=== PATIENT | male | born 1955 | race Caucasian/White ===

== ENCOUNTER 2020-02-23 17:44 | Inpatient (IN) | payer OTHER ==
[~2020-02-23] VITALS: Ht 170.2 cm; Wt 51.0 kg
[2020-02-23 17:47] VITALS: BP 120/70
[2020-02-23 18:26] LABS: INR 2.6; PROTIME 26.3 Seconds (9.3-11.4)
[2020-02-23] MEDS ORDERED: LANOXIN 0.25M0.25 M1 PO (18:40)
[2020-02-23] MEDS ORDERED: ASA81BEC PO (18:40)
[2020-02-23] MEDS ORDERED: LIPITOR 20 MG T20 M1 PO (18:40)
[2020-02-23] MEDS ORDERED: JANTOVEN3 MG PO (18:41)
[2020-02-23] MEDS ORDERED: FUROSEMIDE 40 M40 MG PO (18:41)
[2020-02-23] MEDS ORDERED: LOPRESSOR50 MG PO (18:41)
[2020-02-23] MEDS ORDERED: LISINOPRIL2.5 MG PO (18:41)
[2020-02-23] MEDS ORDERED: SEROQUEL 25 MG25 MG PO (18:41)
[2020-02-23 20:04] VITALS: BP 121/65
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
[2020-02-24 07:06] LABS: ABSOLUTE NEUTROPHILS 5.6 thou/uL (1.4-8.2); BASOPHILS 1.2 % (0.0-2.0); EOSINOPHILS 3.8 % (0.0-3.0); HEMATOCRIT 36.5 % (42.0-52.0); LYMPHOCYTES 14.2 % (24.0-44.0); MCH 30.9 pg (26.0-34.0); MCHC 32.8 g/dL (28.0-37.0); PLATELET COUNT 270 thou/uL (150-400); POLYS 72.8 % (36.0-66.0); RBC 3.89 mil/uL (4.50-6.00); RDW 15.7 % (10.5-14.5); WBC 7.7 thou/uL (4.0-11.0)
[2020-02-24 07:10] LABS: INR 1.7; PROTIME 17.9 Seconds (9.3-11.4)
[2020-02-24 07:11] LABS: CALCIUM 9.1 mg/dL (8.5-10.1); CREATININE 1.8 mg/dL (0.7-1.3); POTASSIUM 5.2 mmol/L (3.5-5.1)
--- NOTE | 2020-02-24 07:17 | NUR ---
I was making morning rounds. I stopped to talk to another patient. I said "Good morning" to the patient. Solomon hit his call medina and in an angry tone stated "no, it's not!" I prononced his name as Mumtaz. He again in an angry tone stated "My name is Solomon can't you read!" I responded by saying "First off, I was talking to this gentleman, I am sorry I pronounced you name wrong and secondly, you do not need to yell at me.
--- NOTE | 2020-02-24 08:15 | EKG ---
[facility] [place] [address] ELECTROCARDIOGRAM REPORT Name: CHRISTINA GRIFFIN Room #: [facility] ADM IN M.R.#: [id number] Admission: 02/23/20 Attend Phys: Milad Lai DO Discharge: Date of : 53 Report #: [id number] THIS REPORT FOR: cc: CECILIA - No family physician/PCP FAM - No family physician/PCP Eliezer Lazar MD [facility] ~ THIS REPORT FOR: //name// [facility] ED Test Date: 2020-02-23 Test Time: 18:12:34 Pat Name: CHRISTINA GRIFFIN [facility] Gender: M Manager Respiratory: DONNA : 1955 Requested By: Shelby King Order Number: [id number] MD: Eliezer Lazar Measurements Intervals [place] Rate: 66 P: MD: QRS: 87 QRSD: 95 T: 91 QT: 431 QTc: 452 Interpretive Statements Atrial flutter with predominant 4:1 AV block Probable left ventricular hypertrophy Poor R wave progression Nonspecific ST and T wave abnormality No previous ECG available for comparison Electronically Signed On 02-24-2020 7:44:53 CDT by Eliezer Lazar [email or web address] <ELECTRONICALLY SIGNED> By: Eliezer Lazar MD, [facility] 02/24/20 0744 11 11 Eliezer Lazar MD, [facility] /EPI
[2020-02-24 09:01] VITALS: BP 100/64
--- NOTE | 2020-02-24 13:47 | NUR ---
SW met with pt and misunderstood the nurses note that his name was pronounced yesenia and not leeanne, so he was hostile at first. SW completed the intake assesment and TP. Pt was defensive abd sarcastic during the interview.
--- NOTE | 2020-02-24 16:55 | NUR ---
JANNETTE called pt's [facility] [phone] and set up family meeting for 02/27 11:30 am.
[2020-02-24 20:35] VITALS: BP 114/53
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
--- NOTE | 2020-02-25 04:56 | NUR ---
Assumed care of pt @ 1900. Pt calm et cooperative most of shift. Pt perseverating on discharging today et states that he "can't stand this fucking place". Pt states that he will leave without the physician permission if he is not discharged today. Informed pt that physician has the option to place pt on hold if he feels that pt is a danger to himself or others. Pt verbalized understanding. Took medications whole without difficulty. Pt mildly obsessed with the temperature in his room this shift et states that he is on Coumadin et therefore is always cold. Ambulates the halls ad martin with steady gait. VSWNL. Health assessment with no abnormalities noted @ present time. Denies SI/HI @ presen time. Currently resting in bed with eyes closed. Will continue to monitor per protocol.
[2020-02-25 08:00] VITALS: BP 105/57
[2020-02-25 08:18] LABS: INR 1.5; PROTIME 15.2 Seconds (9.3-11.4)
[2020-02-25 08:19] LABS: CREATININE 1.8 mg/dL (0.7-1.3); POTASSIUM 5.2 mmol/L (3.5-5.1)
[2020-02-25 13:00] VITALS: BP 105/57
--- NOTE | 2020-02-25 13:07 | NUR ---
ASSUMED CARE AT 0700 THIS MORNING. PT. STABLE, ALERT AND ORIENTED. HE IS IRRITABLE WITH STAFF/PEERS. HE WAS TOLD HOW HE WAS BEING IRRITABLE WITH EVERYONE. HE BECAME SILENT. HE DID TRY TO BE LESS IRRITABLE AFTER THAT. HE LIKES TO BE CONTROLLING. HE WOULD ATTEMPT TO TELL PEERS WHAT THEY COULD OR COULD NOT WATCH ON TELEVISION. HE COME TO THIS RN AND STATED, "I NEED SOME SERIOUS PAIN MEDICATION. WHEN THIS RN STATED THAT WILL NOT HAPPEN, HE STATED "THEN CAN I HAVE TYLLENOL?". HE WAS THEN GIVEN TYLENOL. A MOVIE WAS STARTED FOR THE PATIENTS ON T.V. PT. SAT IN ON THE MOVIE MOST OF THE TIME.
[2020-02-25 19:36] VITALS: BP 102/51
--- NOTE | 2020-02-26 01:24 | NUR ---
PATIENT ALERT AND ORIENTED TO NAME. ANGRY AT BEGINNING OF SHIFT AND THROWING HIS SHOE IN HIS ROOM. REDIRECTED AND PATIENT DID TAKE HIS SCHEDULED MEDICATION. GIVEN MELATONIN WHICH ASSISTED WITH HIS RESTING, HOWEVER, HE DID AWAKEN AND SPEAK TO THIS NURSE AROUND MIDNIGHT ABOUT GETTING HIS CAR OUT OF THE LOT. PATIENT WAS SATISFIED TO TALK ABOUT IT IN THE MORNING AND HE WENT BACK TO HIS ROOM AND RETURNED TO BED. WILL MONITOR.
[2020-02-26 06:28] LABS: INR 1.9; PROTIME 19.8 Seconds (9.3-11.4)
[2020-02-26 07:51] VITALS: BP 105/60; BP 147/85
--- NOTE | 2020-02-26 08:19 | NUR ---
GOING TO SCAN PT ARM BAND PT STATED GET YOUR DIRTY HANDS OFF ME. PT VERY DEMANDING AND WANTING HIS BREAKFAST HEATED UP. PT DID TAKE MEDS FOR THIS SUPERVISOR WIRE ROPE FABRICATION. PT DENIES ANY PAIN. PT STATED HE IS GOING TO DISCHARGE FRIDAY, THAT HE IS NOT CRAZY.
[2020-02-26 08:30] VITALS: BP 105/60
--- NOTE | 2020-02-26 14:30 | NUR ---
PT TALKING TO OTHER RESIDENTS ABOUT CATHOLIC AND GIVING THE HOLINESS 10% OF YOUR PAY. PT IS VERY SOCIAL. PT TALKED ABOUT HE HAS SMOKED SINCE HE WAS 3 YEARS OLD AND HE LIKES NON-FILTERED SMOKES. PT STATED HE IS GETTING OUT FRIDAY AND HE IS GOING TO BUY HIM SOME.
--- NOTE | 2020-02-26 15:41 | NUR ---
ADM TYLENOL 235MG 2 TABS PO FOR HEADACHE OF 5 ON 1-10 SCALE.
--- NOTE | 2020-02-26 16:30 | NUR ---
PT STATED THAT HIS HEADACHE IS GONE AT THIS TIME.
[2020-02-26 19:58] VITALS: BP 106/45
--- NOTE | 2020-02-27 00:40 | NUR ---
PT CARE ASSUMED AT 1900 WITH PT IN THE ACTIVITY WATCHING TV WITH PEERS.PT REQUESTED TYLENOL FOR RELIEF OF HEADACHE.PT TOOK BEDTTIME MEDICATIONS WITH NO ISSUES.PT WENT TO BED AND GOT UP COMPLAINING OF COLD AND NEEDED EXTRA BLANKETS.PT WAS GIVE EXTRA BLANKET AND WAS COVERED UP BY STAFF.TYLEONOL WAS ADMINISTERED TO PT.PT APPEAR TO BE SLEEPING AT THIS TIME.WILL CONTINUE TO MONITOR
[2020-02-27 05:22] LABS: INR 2.8
[2020-02-27 07:55] VITALS: BP 117/70
--- NOTE | 2020-02-27 08:44 | NUR ---
PT UP THIS AM. PT STATED THAT HIS WEIGHT GUESSER WAS FAT AND NEEDED TO LOSE WEIGHT. HE ALSO TOLD SECRETERY SHE NEEDED TO LOOSE WEIGHT. PT YELLS AT OTHER INDIVIDUALS IF THEY ARE LOUD, HE WILL TELL THEM PATIENTS TO SHUT UP. PT IS OPINIONATED AND STATED HE ONLY TALKS THE TRUTH. PT DID TAKE HIS MEDS WITHOUT ANY ISSUES.
--- NOTE | 2020-02-27 09:32 | NUR ---
ADM TYLENOL 325MG 2 TABS PO FOR C/O HEADACHE PAIN OF 5 ON 1-10 SCALE. PT STATED THAT THESE CRAZY PEOPLE ARE GIVING HIM A HEADACHE.
--- NOTE | 2020-02-27 14:30 | NUR ---
PT WORKING ON COLORING A SUN. PT HAS ISSUES WITH OTHER PATIENTS TOUCHING HIM OR GOING INTO HIS ROOM. PT STATED HE WILL KNOCK THEM OUT IF SOMEONE STEALS HIS STUFF.
--- NOTE | 2020-02-27 17:18 | NUR ---
ADM TYLENOL 325MG 2 TABS PO FOR COMPLAINTS OF HEADACHE. ADM NATRUAL TEARS ALSO.
--- NOTE | 2020-02-27 18:15 | NUR ---
PT RESTING IN RECLINER AT THIS TIME.
[2020-02-27 19:22] VITALS: BP 116/96
[2020-02-27 20:05] VITALS: BP 116/96
[2020-02-28 06:07] LABS: INR 3.8; PROTIME 38.7 Seconds (9.3-11.4)
[2020-02-28 08:36] VITALS: BP 106/53
--- NOTE | 2020-02-28 15:52 | NUR ---
Jannette and Dr bran had a family emeting with [facility] Veronique and it was reported to her that this pt will need / supervision and LTC. JANNETTE emailed the neuropsych testing when available to [email or web address] per request. Jannette and Dr bran will speka with veronique on Friday to follow up as she needed time to speak with other family members for support. Pt does not have a DPOA and it was discussd that he will likely need a guardian at this time.
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
[2020-02-28 19:45] VITALS: BP 97/51
[2020-02-29 03:19] VITALS: BP 97/51
--- NOTE | 2020-02-29 06:12 | NUR ---
4 care transfered at 191; 1955 pt AAOx3 agitated, demanding hostile with sarcastic comments. Pt was cooperative with assessment and medication administration. Please refer to nursing interventions for more information. Zero acute distress noted.
[2020-02-29 09:00] VITALS: BP 106/64
[2020-02-29 10:19] VITALS: BP 106/64
--- NOTE | 2020-02-29 10:26 | NUR ---
ASSUMED CARE AT 0700 THIS MORNING. PT. UP, DRESSED AND IN THE DINING ROOM FOR MEALS. HE CONTINUES WITH A SARCASTIC EDGE TO HIM WHEN SHE SPEAKS TO PEOPLE. WHEN THIS IS DRAWN TO HIS ATTENTION, HE ATTEMPTED TO DENY THIS. HE TOOK HIS MEDICATIONS WITHOUT DIFFICULTY. HAS BEEN UP ON THE UNIT MOST OF THE MORNING, WATCHING TV.
--- NOTE | 2020-02-29 15:59 | NUR ---
Sw spoke with pt's ex who provided a code and stated that her dght is feeling overwhelmed and wanted help. Dr bran paricapted in this call and despite constant repetition she was talking over the Dr and SW. She did provide the name and pohone number of the pt's PCP Dr Sunny Wilkinson [phone] and fax [phone] and asked eliel the pt's records be sent there so they can get advise from their famiyl dr about the recomendations. Dr bran is recomending memory care and at the very least 24/7 supervision in the home. It was clear that she is in denial regaridng this pt's diagnosis. Cori will send the neurotessting once it is in the chart.
[2020-02-29 17:15] LABS: PROTIME 21.3 Seconds (9.3-11.4)
[2020-02-29 17:20] LABS: INR 2.1
[2020-02-29 19:40] VITALS: BP 98/51
--- NOTE | 2020-03-01 04:52 | NUR ---
Assumed care of pt @ 1900. Pt gruff but cooperative this shift. Took medications whole without difficulty. Ambulates the halls ad martin with staedy gait. Socialized in dayroom until HS. Pt's demeanor is one of agitation so he tends to stick to himself while in the dayroom. VSWNL. Health assessment with no abnormalities other than previously noted. Denies SI/HI @ present time. Currently resting in bed with eyes closed. Will continue to monitor per protocol.
[2020-03-01 06:41] LABS: INR 1.8; PROTIME 18.1 Seconds (9.3-11.4)
[2020-03-01 07:26] VITALS: BP 111/61
[2020-03-01 11:33] VITALS: BP 111/61
--- NOTE | 2020-03-01 11:43 | NUR ---
ASSUMED CARE OF PT. AT 0700 THIS MORNING. HE CONTINUES TO BE SARCASTIC AND RUDE. HE IS IRRITABLE ONGOINGLY. HE TOOK HIS MEDICATIONS WITHOUT PROBLEMS NOTED. HE SAT IN A RECLINING CHAIR AFTER BREAKFAST AND FELL ASLEEP. HE ASKED FOR TYLENOL BUT WHEN THE STAFF NURSE BROUGHT IT TO HIM, HE HAD FALLEN ASLEEP, AND WAS THEN NOT GIVEN TO HIM.
--- NOTE | 2020-03-01 12:42 | NUR ---
RT progress note- Patient remains present in the milieu for much of the day. He remains blunt and snide in conversation with peers and staff but is redirectable. He continues to request to listen to music, especially Dov and also enjoys watching [employer] on television and discussing nature. Will continue to provide patient with social opportunities to better social skills and interactions.
--- NOTE | 2020-03-01 13:35 | NUR ---
Solomon is sitting in a recliner watching television. A peer approach the recliner, near Solomon's feet; the peer bent down as if he were reaching for something. Solomon kicked at his peer. He did not make contact. I instructed him not to kick at people. He in an irriated tone stated "Don't touch me." I escort the peer to the sofa.
--- NOTE | 2020-03-01 15:50 | NUR ---
JANNETTE initaited a medicaid application with [employer]
[2020-03-01 19:28] VITALS: BP 81/44
--- NOTE | 2020-03-02 05:30 | NUR ---
Assumed care at 1900. His initial conversation was intermittent pleasant with sarcasm unprovoked. Stated he had not seen any doctors, was wantingto go home. He ambulates without difficulty. He is continent. Was given tylenol for buttocks pain with partial relief. Pt. was compliant with meds. He basically slept the night without coming out of his room.
[2020-03-02 06:34] LABS: HEMATOCRIT 34.2 % (42.0-52.0); HEMOGLOBIN 11.2 gm/dL (14.0-18.0); MCH 30.6 pg (26.0-34.0); MCHC 32.8 g/dL (28.0-37.0); MCV 93.3 fL (80.0-100.0); RBC 3.66 mil/uL (4.50-6.00); WBC 6.5 thou/uL (4.0-11.0)
[2020-03-02 06:46] LABS: CALCIUM 8.2 mg/dL (8.5-10.1); CREATININE 1.7 mg/dL (0.7-1.3); POTASSIUM 4.8 mmol/L (3.5-5.1)
[2020-03-02 06:57] LABS: INR 1.8; PROTIME 18.1 Seconds (9.3-11.4)
[2020-03-02 07:29] VITALS: BP 104/58
--- NOTE | 2020-03-02 11:38 | NUR ---
CORI faxed a packet to Dr Wilkinson and then scanned and emailed this to pt's daughter per reinaldo request. Cori also asked a follow up call to schedule an appt with Dr bran to disucss d/c plans.
--- NOTE | 2020-03-02 12:57 | NUR ---
Up ambulating t/o unit without s/o distress. Dressed in multiple layers of clothing. States he is always cold when asked. Alert and orietated X4. States he wants to meet with doctor this AM and wants to leave. Responses are short and direct to questions. Converses with peers. Breath sounds clear t/o. Reg HR auscultated with rate in 50s. Color pink with brisk capillary refill and palpable peripheral pulses. No edema noted. Independent with voiding. Active bowel sounds over soft, flat abdomen. States he had BM yesterday. Regular, steady gait. 0815 Dr. Galvan here assessing pt. Notified of digoxen held d/t decreased HR, level of 2.6. Digoxen level ordered for 1600 this afternoon. 1300 Ambulating in unit without s/o distress. Ate lunch with peers in dining room.
[2020-03-02 19:23] VITALS: BP 90/47
--- NOTE | 2020-03-03 05:36 | NUR ---
Assumed care of pt @ 1900. Pt calm et cooperative this shift. Took medications whole without difficulty. Ambulates the halls ad martin with steady gait. VSWNL. Health assessment with no abnormalities noted @ present time. Denies SI/HI @ present time.Lab here this morning for am lab draw. Pt cooperated with no complaints. Pt then asked labor economist to get him some coffee and she told him to ask the nurse. When pt came out to see if he could have coffee, he was upset that he was told he would have to wait until 6:30am. Pt stated, "the nurse told me that I could have some". When he was reminded that it was the labor economist tht told him to ask the nurse, pt became agitated et slammed door to room. Currently restin in bed with eyes open. Will continue to monitor per protocol.
[2020-03-03 06:09] LABS: INR 1.9; PROTIME 19.5 Seconds (9.3-11.4)
[2020-03-03 08:00] VITALS: BP 102/57
--- NOTE | 2020-03-03 10:16 | NUR ---
PATIENT CARE ASSUMED AT 0700 AM WHEN ARIVING ON UNIT. SITTING IN DINING DAVILA - APPROACHED BY STAFF AND WAS GUARDED. STATED HAD GOOD NIGHT SLEEP - NO PAIN DISCOMFORT. ISOLATES TO SELF - DOES NOT ENGAGE WITH PEERS. TOOK MEDICATIONS BUT VERY INPATIENT WHEN MAKING REQUESTS. ASKED TO HEAT HIS BREAKFAST AND BECAME VERBALLY IRRITATED HAVING TO WAIT - PLACED NICOTENE PATCH ON PATIENT AND TOLEERATED WELL. AMBULATES INDEPENDENTLY - SPENT TIME IN DINING DAVILA AFTER BREAKFAST.
--- NOTE | 2020-03-03 13:40 | NUR ---
JANNETTE and Dr Lai met with pt and his dght Jazmin and ex Emelina were on the phone. Dr lai eported on the need for memory care . Pt is willing to appoint dght as DPOA. Jannette got that done with the neil and emailed a copy to Jazmin. They agree that pt can go to a memory care nearby [place]. Jannette sent referrals to [facility] and [facility].
--- NOTE | 2020-03-03 14:40 | NUR ---
Pt was denied at [place] because he would need a finanial DPOA, but they are ok with everythign else. SW contacted family and urged them to get this does ZULMA.
[2020-03-03 19:32] VITALS: BP 91/41
[2020-03-03 22:13] VITALS: BP 91/41
--- NOTE | 2020-03-04 00:10 | NUR ---
Assumed care of patient at change of shift. Pt. sitting in recliner in day room watching TV. Assessment completed. During assessment patient complained about another patient trying to get too close to him and taking his stuff. He was agitated and said he was gonna stand up and punch him if he did it again. Redirection done, education given, and emotional support offered. He denies homicidal thougbts or threats. Pt. took medication whole with water. No choking or coughing noted after swallowing. Pt remained agitated about the other patient until he went to his room to lay down and sleep for the night.
[2020-03-04 06:31] LABS: INR 2.5; PROTIME 25.8 Seconds (9.3-11.4)
[2020-03-04 07:15] VITALS: BP 82/38
--- NOTE | 2020-03-04 08:48 | NUR ---
ASSUMED CARE AT 0700 THIS MORNING. PT. UP, DRESSED AND OUT OF HIS ROOM. HE IS SITTING AT A DINING ROOM TABLE. HE IS CONCERNED THE MICROPHONE BOOM OPERATOR'S OPENED HIS DOOR AND HE WANTED IT LOCKED. HE CONTINUES TO BE IRRITABLE, COMPLAINTIF WHEN SPEAKING. HE WAS ASKED WHY HE IS IRRITABLE MOST OF THE TIME. HE DID NOT RETORT BUT STOPPED BEING IRRITABLE WHEN SPEAKING. THIS RN THEN DID GO AND LOCK HIS BEDROOM DOOR. HIS B/P MEDICATIONS WERE HELD DUE TO B/P BEING 82/38. HE DENIES DIZZINESS OR LIGHTHEADEDNESS. HIS PULSE IS 60 AT THIS TIME. HE TOOK THE REMAINDER OF HIS MEDICATIONS WITHOUT DIFFICULTY. HE IS EATING WELL. HE ASK THE STAFF TO HEAT UP HIS TRAY EVERY MEAL. STAFF DOES DO THIS FOR THE PT.
[2020-03-04 09:33] VITALS: BP 82/38
[2020-03-04 13:18] VITALS: BP 126/51
[2020-03-04 13:19] VITALS: BP 110/47
[2020-03-04 13:20] VITALS: BP 100/60
--- NOTE | 2020-03-04 17:05 | NUR ---
SW attempted to meet with patient 1:1 in lieu of group due to COVID-19 restrictions. Patient was sleeping.
[2020-03-04 19:41] VITALS: BP 105/36
--- NOTE | 2020-03-05 00:22 | NUR ---
Assumed care of patient this pm shift. Patient in good spirits sitting in a recliner in the day room. Patient was calm and cooperative. Patient denies pain. Patient denies hi/si. Patient takes medications willingly and whole with fluids. Patient ambulates without assistance. Patient is most concerned with when he will get to go home. Patient is alert and oriented x4. Patients assessment shows clear breath sounds, active bowel sounds, and s1 s2 heard with auscultation. Patient is continent of bowel and bladder. We will continue to monitor.
[2020-03-05 07:32] VITALS: BP 83/43
[2020-03-05 11:11] LABS: HEMATOCRIT 31.1 % (42.0-52.0); HEMOGLOBIN 10.5 gm/dL (14.0-18.0); MCH 31.1 pg (26.0-34.0); MCHC 33.9 g/dL (28.0-37.0); MCV 91.7 fL (80.0-100.0); RBC 3.39 mil/uL (4.50-6.00); RDW 15.4 % (10.5-14.5); WBC 7.7 thou/uL (4.0-11.0)
[2020-03-05 11:31] LABS: ANION GAP 7 mmol/L (7-16); BUN 34 mg/dL (7-18); CALCIUM 8.5 mg/dL (8.5-10.1); CHLORIDE 103 mmol/L (98-107); CO2 28 mmol/L (21-32); CREATININE 1.5 mg/dL (0.7-1.3); GLUCOSE 79 mg/dL (74-106); POTASSIUM 4.5 mmol/L (3.5-5.1); SODIUM 138 mmol/L (136-145); TROPONIN-I <0.06 ng/mL (<0.06)
--- NOTE | 2020-03-05 15:00 | NUR ---
Assumed care at 0700. With almost each encounter has something sarcastic to say--trigger is unknown. Wants out of here. c/o burning BLE 5/10-given tylenol. Wants to see if that helps before exploring stronger pain med. He does not know the origin of the burning legs. Instructed patient to take off his khaki long sleeve shirt prior to BP's being taken. Reminded that he should have lying, sitting, standing BP's with pulses.
[2020-03-05 19:55] VITALS: BP 104/61
[2020-03-05 20:30] VITALS: BP 104/61
--- NOTE | 2020-03-06 01:58 | NUR ---
PATIENT WAS UP IN DINING ROOM AND HAS BEEN PLEASANT AND COOPERATIVE. HE HAD HS SNACK. VSS. PATIENT IS INDEPENDENT WITH CARES. PT WENT TO BED ON HIS OWN. HE TOOK HIS HS MEDS WHOLE WITH WATER. ORTHOSTATIC BP'S AND PULSE DONE AND WNL. DENIES PAIN. CONTINUING TO MONITOR.
[2020-03-06 06:10] LABS: PROTIME 30.8 Seconds (9.3-11.4)
[2020-03-06 07:29] VITALS: BP 134/59
--- NOTE | 2020-03-06 07:53 | NUR ---
Assumed care 0700. 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 This nurse wanted BP's done without his thick long sleeve shirt off. Orthostatic BP's= Natit=413/54 P= 75 Sitting+116/45 P=66 Hibnmjan=709/76 P=93 He continues to want to get "out of here." Pt. wished he had dreamt about his father whom he shared his accolades and wished he could be with him yet said he was not ready to join him in heaven. He gestured toward his Bible and made reference to his heather.
--- NOTE | 2020-03-06 11:14 | NUR ---
Patient was denied at [facility]. Their Admissions office is sending the referral to their sister facility [facility] in [place], [place] as they have a behavioral health unit that may be more appropriate for patient's needs. The Wire Technician is Rima.
[2020-03-06 19:32] VITALS: BP 127/79
[2020-03-06 20:20] VITALS: BP 127/79
--- NOTE | 2020-03-07 01:02 | NUR ---
PATIENT WAS UP AND INTERACTING AND LAUGHING WITH OTHER PATIENTS IN THE DINING ROOM BEFORE BEDTIME THIS EVENING. HE CARRIED A BUNCH OF PAPERS TO A PATIENT'S ROOM FOR HER WHEN SHE COULDN'T CARRY THEM AND WHEEL HERSELF TOO. HE HAS BEEN APPROPRIATE AND SMILING, CALM AND PLEASANT. PATIENT DENIES PAIN. HIS VSS. DENIES SI/HI/AVH AND IS WANTING TO LEAVE SOON. HE TOOK HIS MEDS WHOLE WITH WATER AND HAD AN HS SNACK. PATIENT SLEEPING AT THIS TIME WITH BED IN LOW POSITION. PATIENT AMBULATES AND IS INDEPENDENT WITH CARES. HE CONTINUES ON DAILY PT/INR'S D/T COUMADIN TREATMENT. INR 5/4 IS 3.0 . WILL CONTINUE TO MONITOR.
[2020-03-07 06:29] LABS: INR 2.2; PROTIME 22.1 Seconds (9.3-11.4)
[2020-03-07 07:30] VITALS: BP 114/66
[2020-03-07 09:09] LABS: HEMATOCRIT 31.8 % (42.0-52.0); HEMOGLOBIN 10.3 gm/dL (14.0-18.0); MCH 30.5 pg (26.0-34.0); MCHC 32.6 g/dL (28.0-37.0); MCV 93.6 fL (80.0-100.0); RBC 3.39 mil/uL (4.50-6.00); RDW 15.7 % (10.5-14.5); WBC 6.1 thou/uL (4.0-11.0)
--- NOTE | 2020-03-07 09:09 | NUR ---
0700 ASSUMED CARE OF PATIENT, PATIENT SITTING IN DAYROOM AT THAT TIME. PATIENT CONTINUES TO SIT IN DAYROOM AFTER BREAKFAST DR KEBEDE HERE TO SEE PATIENT. NOTIFIED DR OF PATIENTS PULSE OF 129. NO COMPAINTS OF NAUSEA, CHEST PAIN, NO COMPLAINTS OF SOB. MEDICATIONS GIVEN. WILL RECHECK VITALS AND CONTINUE TO OBSERVE.
[2020-03-07 09:21] LABS: ANION GAP 4 mmol/L (7-16); BUN 37 mg/dL (7-18); CALCIUM 8.8 mg/dL (8.5-10.1); CHLORIDE 102 mmol/L (98-107); CO2 29 mmol/L (21-32); CREATININE 1.6 mg/dL (0.7-1.3); GLUCOSE 86 mg/dL (74-106); MAGNESIUM 2.1 mg/dL (1.8-2.4); POTASSIUM 5.2 mmol/L (3.5-5.1); SODIUM 135 mmol/L (136-145); TROPONIN-I <0.06 ng/mL (<0.06)
[2020-03-07 10:15] VITALS: BP 149/47
--- NOTE | 2020-03-07 10:41 | NUR ---
PATIENT IN DAYROOM WATCHING TV. PATIENT STARTS TO YELL AT EVERYONE SITTING THERE TO BE QUIET. PLUMBER PIPE FITTING TALKS WITH HIM THAT IF HE NEEDS QUIETNESS HE CAN GO TO ROOM AND TO PLEASE NOT YELL. OTHER PATIENTS STARTED TO GET AGGITATED DUE TO PATIENTS YELLING.
--- NOTE | 2020-03-07 11:24 | NUR ---
CORI has been emailing [facility] about getting a finanical dpoa and she stated they are almost done wth that, they would like to consider placement in [place], Cori sent her a list of placements to consider. [facility]am contacted this worker later and asked of rupdates as they are still interested. CORI sent 4 days of notes.
--- NOTE | 2020-03-07 13:00 | EKG ---
[facility] [place] [address] ELECTROCARDIOGRAM REPORT Name: CHRISTINA GRIFFIN [place] [facility] [place] M.R.#: [id number] Admission: 02/23/20 Attend Phys: Milad Lai DO Discharge: Date of : 53 Report #: [id number] THIS REPORT FOR: cc: CECILIA - [place] family physician/PCP CECILIA - [place] family physician/PCP Eliezer Lazar MD [facility] ~ THIS REPORT FOR: //name// [facility] Test Date: 2020-03-07 Test Time: 09:16:55 Pat Name: CHRISTINA GRIFFIN Department: Room: [facility] [place] Gender: M 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 : 1955 Requested By: Bipin Galvan Order Number: [id number] MD: Eliezer Lazar Measurements Intervals [place] Rate: 129 P: 113 ND: 87 QRS: 78 QRSD: 90 T: QT: 299 QTc: 438 Interpretive Statements Atrial flutter with 2:1 conduction Ventricular premature complex Low voltage with right axis deviation Compared to ECG 02/23/2020 18:12:34 Ventricular premature complex(es) now present Heart rate has increased Electronically Signed On 03-07-2020 12:58:54 CDT by Eliezer Lazar [email or web address] <ELECTRONICALLY SIGNED> By: Eliezer Lazar MD, [facility] 03/07/20 1258 5 5 Eliezer Lazar MD, [facility] /EPI
[2020-03-07 13:55] VITALS: BP 103/48
[2020-03-07 20:03] VITALS: BP 103/58
--- NOTE | 2020-03-08 05:36 | NUR ---
Assumed care of pt @ 1900. Pt calm et cooperative with somewhat pleasant demeanor this shift. Took medications whole without difficulty. Ambulates the halls ad martin with steady gait. VSWNL. Health assessment with no abnormalities noted at this time. Denies SI/HI. Socialized with peers in dayroom until HS. Currently resting in bed with eyes closed. Will continue to monitor per protocol.
[2020-03-08 06:24] LABS: HEMATOCRIT 28.9 % (42.0-52.0); HEMOGLOBIN 9.5 gm/dL (14.0-18.0); MCH 30.7 pg (26.0-34.0); RBC 3.1 mil/uL (4.50-6.00); RDW 15.8 % (10.5-14.5); WBC 7.3 thou/uL (4.0-11.0)
[2020-03-08 06:34] LABS: CALCIUM 8.4 mg/dL (8.5-10.1); CREATININE 1.8 mg/dL (0.7-1.3); MAGNESIUM 2.1 mg/dL (1.8-2.4)
[2020-03-08 06:39] LABS: INR 1.8; PROTIME 18.2 Seconds (9.3-11.4)
[2020-03-08 07:26] VITALS: BP 90/41
[2020-03-08 09:00] VITALS: BP 132/50
--- NOTE | 2020-03-08 09:10 | NUR ---
0700 ASSUMED CARE OF PATIENT, PATIENT SITTING IN DAYROOM AT THAT TIME. ATE 100% OF BREAKFAST. MEDIACTIONS TAKEN WHOLE WITHOUT DIFFICULTY. PATIENT VS BP- 90/41 P- 58 R- 16 T- 98.2 SATS- 97%. BP RETAKEN WITHOUT THICK SHIRT BP-132/50 P- 42-64 IRREGULAR. AFTER BREAKFAST PATIENT STANDING UP IN DAYROOM WHEN ANOTHER PATIENT BRUSHED UP AGAINST HIM AND YELLED AT HIM. WILL CONTINUE TO MONITOR
[2020-03-08 11:50] VITALS: BP 102/52
--- NOTE | 2020-03-08 13:42 | NUR ---
JANNETTE and pt completed a video conference with Jenny at the [employer] [facility] director and Camryn. This included Jenny educating pt o the DPOA documents and to have Jazmin as DPOA . Pt agreed and signed this document and it was notraized. Pt later met for a visit on video chat for another 10 minutes. Pt was satisfied with outcome, and understands that pt will be discharging as soon as placement is found.
--- NOTE | 2020-03-08 14:39 | NUR ---
Cori met with family after the meeitng and they have the elder law attonreys completing the medicaid application for [place] and want the referral to be sent t 3 places. They ahvent decided yet and will send these to this worker before the end of today.
[2020-03-08 16:07] VITALS: BP 108/36
--- NOTE | 2020-03-08 16:18 | NUR ---
@ 1600 BP AND P TAKEN PER DR'S ORDER. BP- 108/36 P- IRREGULAR 62-74. NO C/O OF CHEST PAIN, SOB OR DIZZINESS. DR BUENO NOTIFIED, NO NEW ORDERS RECIEVED AT THIS TIME. WILL NOTIFY DR DICKEY
[2020-03-08 19:13] VITALS: BP 127/92
[2020-03-08 20:30] VITALS: BP 127/92
--- NOTE | 2020-03-08 23:30 | NUR ---
PATIENT HAS BEEN CALM AND COOPERATIVE TONIGHT. HE HAS INTERACTED WELL WITH OTHER STAFF AND PATIENTS. HE HAD TWO CONFUSED PATIENTS THAT ENTERED HIS ROOM AROUND BED TIME AND STOOD IN THERE TALKING TO HIM. HE COULD NOT MAKE SENSE OF WHAT THEY WERE SAYING. HE DID NOT YELL AT THEM OR TREAT THEM BADLY. THIS NURSE SAW THE PATIENTS IN THERE AND SIMPLY TOLD THEM THAT CHRISTINA WAS NEEDING TO GET READY FOR BED SO COULD THEY FOLLOW ME OUT TO THE DAYROOM. THE TWO PATIENTS SAID GOOD BYE AND CAME OUT OF THE ROOM WITHOUT INCIDENT. CLOSED PATIENT'S DOOR AND UNLOCKED MIDDLE DOOR SO OTHER PATIENT'S WOULD NOT WANDER BACK IN. PATIENT THANKED ME AND THEN WENT TO BED. HE DENIES PAIN. HE TOOK HIS MEDS WHOLE WITH WATER. HE HAD A HS SNACK OF ICECREAM. NICORETTE PATCH REMOVED FROM HIS RIGHT ARM AT 2039. PATIENT IS AMBULATORY. DENIES SI/HI/AVH. CONTINUED ROUNDING TO ASSESS SAFETY AND STATUS OF PATIENT.
--- NOTE | 2020-03-09 08:04 | NUR ---
RT progress note- Patient continues to be present in the milieu and participates in leisure activities as offered. In his down time he is seen reading a book. Though he remains blunt and sarcastic in conversation he has begun to socialize with a few select peers whom he enjoys discussing wars and politics with. He continues to discuss wanting to discharge to [place] where he expects his ex and daughter to care for him.
--- NOTE | 2020-03-09 10:16 | NUR ---
JANNETTE RECIEVED NOTICE THAT HIS INSURANCE IS NO LONGER PAYING FOR HIS STAY HERE. JANNETTE IMMEDIATELY SENT AN EMAIL TO THE FAMIY AND DELMER MENTIONED THE OUT OF POCKET COST THAT WILL BE NEEDED. JANNETTE URGED FAMILY TO PROVIDE MORE OPTIONS FOR PLACEMENT BY NOON TODAY. FAMILY HAD ASKED AT 5PM YESTERDAY FOR REFERRALS BE SENT TO [facility] ( ALREADY DENIED) [facility] (ALWAYS FULL) AND [facility]. JANNETTE DOWELL COMMUNICATED THE URGENCY TO CHOOSE A PLACE THE COST AND UNNECESSARY STAY INPT THROUGH THE WEEKEND.
--- NOTE | 2020-03-09 10:44 | NUR ---
SW SENT REFERRALS TO [facility] AND [facility]
[2020-03-09 12:00] VITALS: BP 100/58
--- NOTE | 2020-03-09 13:18 | NUR ---
Cori spoke with Jenny at [employer] and she suggested that i call [facility] Josue and tell [facility] that they can accept withought the 60 days of residnecy. Cori then called back and pt was denied. Pt was denied at [facility] and [facility] (who is no longer accpeting new patients). Cori sent referral to [facility] and left a VM with admissions at [facility] if they would accept this pt.
--- NOTE | 2020-03-09 15:30 | NUR ---
IRRITABLE AFFECT/DYPSHORIC MOOD. WHEN APPROACHED WITH 2 PM SEROQUEL ANGRY FACIAL EXPRESSION AND VENTING ABOUT BEHAVIORS OF A MALE PEER ON UNIT "YEAH BILL WAS RIGHT UP IN MY FACE EARLIER DID YOU SEE" "IT IS TOO MUCH I NEED TO GET THE HELL OUT OF HERE" DENIES SI/SH/HI. GAIT STEADY WITHOUT ASSISTIVE DEVICES. DENIES C/O PAIN/DISCOMFORT. STRUCTURES MAJORITY OF DAY SITTING IN RECLINER IN DAYROOM WATCHING TV-LITTLE PEER INTERACTION NOTED.
[2020-03-09 19:39] VITALS: BP 117/50
--- NOTE | 2020-03-10 05:53 | NUR ---
Assumed care of pt @ 1900. Pt calm et cooperative this shift. Took medications whole without difficulty. Ambulates the halls ad martin with steady gait. Socialized with peers in dayroom until HS. Appears to have rested well this shift. VSWNL. Health assessment with no abnormalities noted at this time. Denies SI/HI. Currently resting in bed with eyes closed. Will continue to monitor per protocol.
[2020-03-10 08:28] VITALS: BP 112/56
[2020-03-10 10:08] LABS: INR 1.9; PROTIME 19.3 Seconds (9.3-11.4)
--- NOTE | 2020-03-10 14:04 | NUR ---
Cori sent referrals to [facility], [facility], [facility], [facility], [facility] ( do not take Medicaid) [facility] and [facility] ( no memory care). Cori also resent a referral to [facility] because family called there and it was reported to them that they will availabilty on Fri. Emelina also reported that her younger dght is unemployed and is recoevring from surgery and has not seen her father in 10 years. She is NOT a good candidate to care for this pt in the home.
--- NOTE | 2020-03-10 14:13 | NUR ---
DYSPHORIC MOOD-ABRUPT,SARCASTIC RESPONSES TO NURSING DURING AM ASSESSMENT. COMPLAINTIVE RE PEERS-ANGRY FACIAL EXPRESSION "I NEED TO GET THE HELL OUT OF HERE BEFORE THESE PEOPLE DRIVE ME CRAZY" DENIES C/O PAIN. REFUSED AM PHYSICAL ASSESSMENT I.E AUSCALATION OF HEART AND LUNGS, BOWELS STATING "IM FINE-THERE ISN'T ANYTHING WRONG WITH ME EXCPET YOU" SLEEPING IN RECLINER IN DAYROOM CURRENTLY.
[2020-03-10 19:15] VITALS: BP 104/53
--- NOTE | 2020-03-10 21:07 | NUR ---
Assumed care at change of shift. Pt. was sitting in recliner in day room watching TV. His affect is flat and angry. He has his fists balled up and stated that he was going to "punch someone". He was instructed to unfold his hands and he cooperated without difficulty. He took medications whole with water. No coughing or choking noted after swallowing. He is alert and oriented x 3 but states that he knows nothing of his discharge situation. He denies pain or any other type of distress. No signs or symptoms of pain or distress noted.
[2020-03-10 23:01] VITALS: BP 104/53
--- NOTE | 2020-03-11 06:31 | NUR ---
Pt. slept well throughout night. No complaints from patient and no signs or symptoms of pain or distress noted.
[2020-03-11 06:36] LABS: ALBUMIN 2.9 g/dL (3.4-5.0); CALCIUM 8.3 mg/dL (8.5-10.1); CREATININE 1.5 mg/dL (0.7-1.3)
[2020-03-11 07:40] VITALS: BP 95/56
--- NOTE | 2020-03-11 13:59 | NUR ---
Assumed care at 0700. He has the propensity to make little "digging comments" to staff=passive aggressive. He complains of burning in his legs especially after eating lunch. He had no complaints after breakfast. He keeps to homself and does nottry to engage peers in conversation unless confronted by someone else. He likes to use lots of sugar packets and creamers in his coffee. Cream for leg pain has been requested of pharmacy. He was given tylenol this afternoon for burning leg pain.
--- NOTE | 2020-03-11 16:30 | NUR ---
Note: VS rechecked at 0830: Sitting R vmm=057/73 P 112 R= 18 and Umjikiuw=711/63, P=113, R=18.
[2020-03-11 19:17] VITALS: BP 105/49
--- NOTE | 2020-03-11 20:03 | NUR ---
Assumed care at change of shift. Pt. is sitting in recliner in day room watching TV. He does not interact with peers well. He lodges multiple complaints regarding multiple patients. Education done and emotional support offered. Pt. has flat and angry affect. He is alert and oriented x 3 but is unsure of discharge plannning. He denies pain and distress and no signs or symptoms of pain or distress is noted. He ambulates ad martin and has a slow and steady gait.
--- NOTE | 2020-03-11 21:11 | NUR ---
Pt. took po meds whole with water. No choking or coughing noted after swallowing. He remains in day room and is focused on "protecting" his room. Pt. showed that door is closed and locked. He is content with this.
[2020-03-11 23:29] VITALS: BP 105/49
[2020-03-12 03:32] VITALS: BP 105/49
--- NOTE | 2020-03-12 06:38 | NUR ---
Pt. is up and sitting in dining room drinking morning coffee. He has lodged no complaints this am. He denies pain or any needs. No signs or symptoms of pain or distress noted.
[2020-03-12 07:10] LABS: INR 1.8; PROTIME 18.1 Seconds (9.3-11.4)
[2020-03-12 07:32] VITALS: BP 125/38
--- NOTE | 2020-03-12 07:34 | NUR ---
Assumed care 0700. Up and dressed in dayroom getting coffee, watching TV. No complaints offered.
--- NOTE | 2020-03-12 12:41 | NUR ---
Assumed care at 0700. Pt. was out in dayroom dressed and initially pleasant. In a subsequent interaction he was concrtet, and indicated he is easily misunderstood. At 1230 while on the phone to a family member he was hurt his family has not returned his calls. The when he got a hold of one family member--he said, "Hey do you know who this is? Can you come and get me?" He was encouraged to get the numbers of the other family members he wanted to talk to.
[2020-03-12 13:23] LABS: HEMATOCRIT 32.1 % (42.0-52.0); HEMOGLOBIN 10.6 gm/dL (14.0-18.0)
--- NOTE | 2020-03-12 18:05 | NUR ---
Overall he has had a better disposition in conversation. Dr. Gonzalez was OK with him using leg cream a little bit every couple of hours. He says the pain is like fire ants biting him and a burning sensation.
[2020-03-12 19:18] VITALS: BP 120/51
--- NOTE | 2020-03-12 23:20 | NUR ---
Assumed care of patient at end of shift. Pt. is in alicia with most of the field that they=;
[2020-03-13 05:24] VITALS: BP 120/51
--- NOTE | 2020-03-13 06:20 | NUR ---
Pt. was restless throughout night. He was up and down to recliner and moving legs and stretching and turning. He is currently up in day room awaiting coffee. He has no complaints and no signs or symptoms of pain or distress is noted.
[2020-03-13 07:18] VITALS: BP 109/55
[2020-03-13 07:31] LABS: PROTIME 20.7 Seconds (9.3-11.4)
[2020-03-13 07:32] LABS: ABSOLUTE NEUTROPHILS 5.3 thou/uL (1.4-8.2); BASOPHILS 1.1 % (0.0-2.0); EOSINOPHILS 7.9 % (0.0-3.0); HEMATOCRIT 29.8 % (42.0-52.0); HEMOGLOBIN 9.8 gm/dL (14.0-18.0); LYMPHOCYTES 10.7 % (24.0-44.0); MCH 30.7 pg (26.0-34.0); MCV 92.8 fL (80.0-100.0); MONOCYTES 11.5 % (1.0-8.0); PLATELET COUNT 274 thou/uL (150-400); POLYS 68.8 % (36.0-66.0); RBC 3.21 mil/uL (4.50-6.00); RDW 16.1 % (10.5-14.5); WBC 7.7 thou/uL (4.0-11.0)
--- NOTE | 2020-03-13 07:40 | NUR ---
0700 ASSUMED CARE OF PATIENT, PATIENT SITTING IN DAYROOM WATCHING TV AT THIS TIME. DENIES NEEDS NO C/O PAIN. WILL CONTINUE TO OBSERVE
--- NOTE | 2020-03-13 11:54 | NUR ---
Pt has been accpeted at [facility] IF pt has a [place] medicaid application started and has a COVID 19 negative test result. D/C can be expected 03/15. Cori has communicated this with staff, and family. Family is still holding out that a place in [place] will accept this pt. CORI called and left a VMw with Preet
--- NOTE | 2020-03-13 14:19 | NUR ---
Pt was denied a second time from [facility], and CORI asked [facility] to review. Cori then emailed Emelina and reportedd this to her and that this pt was accpeted at [place] pending a [place] medicaid application
--- NOTE | 2020-03-13 15:58 | NUR ---
Cori sent referral to [facility] center, [facility] and [facility] again. Cori then called and reported to Emelina that pt was discharging on 03/15 . He has placement in at [place], but if the [place] places work out he can go there. Otherwise he can transfer there from [place]. She is aware that [facility] Center will want the [place] medicaid application and 3 months of bank statements. Cori asked Emelina to call the [place] placements and see about the referral. Emelina is also going to relay all of the information to Jazmni. Cori also restarted the [place] medicaid application with [employer].
--- NOTE | 2020-03-13 16:49 | NUR ---
[facility] initated a [place] medicaid application with DPOA over the phone and pt signed the consent and this was scanned and emailed back to [facility].
--- NOTE | 2020-03-13 16:50 | NUR ---
Pt will be tested for COVID 19 today and results will be sent to [facility] for d/c on 03/15.
[2020-03-13 19:51] VITALS: BP 123/78
[2020-03-14 03:29] VITALS: BP 123/78
[2020-03-14 07:34] LABS: INR 2.3; PROTIME 23.9 Seconds (9.3-11.4)
[2020-03-14 08:29] VITALS: BP 107/60
--- NOTE | 2020-03-14 09:56 | NUR ---
0700 ASSUMED CARE OF PATIENT, PATIENT SITTING IN DAYROOM AT THAT TIME. 0800 PATIENT IN DAYROOM FOR BREAKFAST, COMMUNICATION WELL WITH OTHER. MEDICATION GIVEN WHOLE WITHOUT DIFFICULTY. DENIES NEEDS. WILL CONTINUE TO OBSERVE
--- NOTE | 2020-03-14 13:56 | NUR ---
Cori faxed the completed medicaid application, with the DPOA paperwork, [address] , pt is not a level II. to [place]. supervisor film processing time was set for 3:30pm. Cori called ans spoke with veronique and she understands and accepted that pt will go there and move if it is not a good fit. Pt will d/c skilled and then LTC on memory care. Cori also provided her with virgil's number to f/u with concerns. Cori faxed d/c orders and summery and left this coonfirmation on chart to be scanned. Cori also made packet and left this on the chart. All of this was reported to nursing.
[2020-03-14] MEDS ORDERED: COUMADIN 2.5MG2.5 M1 PO (14:27)
[2020-03-14] MEDS ORDERED: COUMADIN 1MG TAB1 M1 PO (14:28)
[2020-03-14] MEDS ORDERED: DIGOXIN125 MCG PO (14:29)
[2020-03-14] MEDS ORDERED: SENNA-TIME S T1 EACH PO (14:31)
[2020-03-14] MEDS ORDERED: SEROQUEL 50 MG50 MG PO (14:31)
--- NOTE | 2020-03-14 16:52 | NUR ---
PATIENT DC AT 1634 VIA WITH [facility] [employer]. ACCOMPANIED BY STAFF PATIENT BELONGING IN HAND ALONG WITH THOSE LOCKED UP IN SECURITY. REPORT CALLED TO REYMUNDO OF [facility] @ 7053 WITH IVAN
--- NOTE | 2020-03-16 12:32 | D ---
[facility] [place] [address] DISCHARGE SUMMARY Name: CHRISTINA GRIFFIN Room #: 520B-B [facility] IN M.R.#: [id number] Admission: 02/23/20 Attend Phys: Milad Lai DO Discharge: 03/14/20 Date of : 53 Report #: [id number] THIS REPORT FOR: cc: CECILIA - [place] family physician/PCP CECILIA - No family physician/PCP Milad Lai DO ~ THIS REPORT FOR: //name// CC: Milad BROOKS physician/PCP DATE OF SERVICE: 03/14/2020 INPATIENT PSYCHIATRIC DISCHARGE SUMMARY ATTENDING PSYCHIATRIST: Milad Lai DO [employer] AT THE TIME OF DISCHARGE: Dr. Lucero. DISCHARGE DIAGNOSES: As follows, major neurocognitive disorder, likely due to Alzheimer disease with behavioral disturbance, improved; unspecified psychosis. Medical comorbidities are as follows: Hypotension, likely due to over diuresis , resolved; hypertension, well controlled on metoprolol 50 mg twice a day; congestive heart failure, no overt signs of failure, Lasix held due to hypotension; atrial fibrillation, on warfarin, therapeutic INR around 2.3, digoxin level now therapeutic; history of mitral valve replacement, on Coumadin; chronic kidney disease stage III, stable; coronary artery disease, denies chest pain; insomnia; moderate to severe protein-calorie malnutrition, weight increased from 108-112 during admission ; hyperlipidemia; tobacco use disorder, has used a patch. DISCHARGE PLAN: We will discharge to [facility] for memory care and actually I believe initially fdc, psychiatric and medical care providers will be per the receiving facility. DISCHARGE DIET: Regular due to malnutrition. ACTIVITY LEVEL: As tolerated. The patient does require 24-hour supervision and assistance. DISCHARGE MEDICATIONS: Warfarin, total of 2.5 mg p.o. daily at 1800 hours; digoxin 0.125 mg p.o. daily; Seroquel 50 mg p.o. at 9:00 a.m., 3:00 p.m. and 9:00 p.m. for impulse control; senna docusate 2 tabs p.o. b.i.d. help for diarrhea for bowel motility; aspirin 81 mg p.o. daily for heart protection; [facility] [address] [place] [address] DISCHARGE SUMMARY Name: CHRISTINA GRIFFIN Room #: 520B-B [facility] IN .R.#: [id number] Admission: 02/23/20 Attend Phys: Milad Lai DO Discharge: 03/14/20 Date of : 53 Report #: [id number] atorvastatin 20 mg p.o. at bedtime for hyperlipidemia, metoprolol tartrate 50 mg 1 tab p.o. b.i.d., status post history of heart failure and history of IL. REASON FOR ADMISSION: Back on 02/23/2020 or so, a 64-year-old female, admitted from [facility] on 02/18/2020. He actually originated at [facility] in [place], [place]. The patient lives in [place], [place]. He was initially hospitalized at [facility]. There, was found to be confused and unusual behavior since 02/01/2020 and was then transferred for Geriatric Psychiatry hospitalization. HOSPITAL COURSE: The patient was admitted to Geriatric Psychiatry Unit. Comprehensive evaluation was undertaken. The patient had a number of impairments in cognition and instrumental activities of daily living. During my admission, Dr. Main Cohen was consulted for neuropsych battery. Diagnosis of major neurocognitive disorder, unspecified, with poor insight and disinhibition, mild severity was made. Extensive discussion was held with his daughter, Jazmin and ex-, Lilliana. [place] patient lives [place] outside of [place], [place]. His ability to get adequate in home care and supervision will be grossly compromised there. The patient had made his daughter his financial DPOA and with elder law disability attorney, made a general financial DPOA that has been enacted. His daughter will be making the significant decisions, the daughter wanting placement. Fortunately, given the challenges of the coronavirus epidemic, we were able to find it at the [facility]. On the day of discharge, the patient was not suicidal or homicidal, felt to be in stable condition to step down. One issue that was worked on with the patient as early on, he would tell people with an expletive to get out of his chair, likely owned a particularly reclining chair on the unit. We had a couple time-outs early on, patient did as the admission progressed show much improved politeness, common courtesy and this simply may be personality factors versus his dementia, but I wanted it noted. We had made progress in that regard. LABORATORY DATA: Particularly this admission, white count 7.7 on 03/12/2020, H and H 10.8 and 29.8; his hemoglobin vacillates between 9.5 and about 10.5, platelet count 274,000. Last INR 2.3 on 03/14/2020. Chemistries: Sodium 136 on 03/11/2020, potassium 5.0, chloride 104, bicarb 24, anion gap 8, BUN 36, creatinine 1.5, estimated GFR 47, glucose 86, calcium 8.3, phosphorus 4.0, albumin 2.9. Urine toxicologies were just the dig level, initially was 2.6, that was decreased to 1.1 with the decrease from 250 mcg to 125 mcg. A COVID PCR test was done at the request of receiving facility on 03/13/2020 that was negative. PHYSICAL EXAMINATION: VITAL SIGNS: On the day of discharge are as follows: Temp 37.2, pulse 63, [facility] [address] [place] [address] DISCHARGE SUMMARY Name: CHRISTINA GRIFFIN Room #: 520B-B [facility] IN [facility].#: [id number] Admission: 02/23/20 Attend Phys: Milad Lai, Discharge: 03/14/20 Date of : 53 Report #: [id number] respirations 16, BP 107/60, O2 sat 100%. MUSCULOSKELETAL: Normal gait and station. MENTAL STATUS EXAMINATION: This is a well-developed, under nourished appearing male, wearing glasses, coates. Attention fair. Concentration limited. Speech normal in rate, volume and tone. Thought process is linear and goal oriented. Thought content focused on discharge. No psychomotor agitation. No psychomotor retardation. Denied SI or HI. Denied auditory, visual, or tactile hallucinations. Memory not formally tested, noted to be impaired. Insight limited. Judgment limited. Fund of knowledge, no greater than average. Mood and affect were pretty much euthymic and congruent for him. PROGNOSIS: For this patient is guarded to poor given having a major neurocognitive disorder, age of 64. Several serious comorbidities including his coronary artery and valvular heart disease. <ELECTRONICALLY SIGNED> By: Milad Lai, 03/16/20 [id number] Milad Lai, /nt
== END 2020-03-14 16:34 | DRG 56 ==
LOC: ER 17:44 → SBH 18:49 → EROBS 18:49 → SBH 19:54
PROVIDERS: Hospitalist; Internal Medicine; Nurse Practitioner Family; ADMIT Psychiatry & Neurology Psychiatry
DX: G30.9 Alzheimer's disease, unspecified (principal); F02.81 Dementia in other diseases classified elsewhere, unspecified severity, with behavioral disturbance; E43 Unspecified severe protein-calorie malnutrition; I11.0 Hypertensive heart disease with heart failure; F01.51 Vascular dementia, unspecified severity, with behavioral disturbance; Z68.1 Body mass index [BMI] 19.9 or less, adult; I48.91 Unspecified atrial fibrillation; I25.10 Atherosclerotic heart disease of native coronary artery without angina pectoris; Z60.2 Problems related to living alone; G47.00 Insomnia, unspecified; F31.9 Bipolar disorder, unspecified; I95.9 Hypotension, unspecified; E87.5 Hyperkalemia; I50.9 Heart failure, unspecified; E78.5 Hyperlipidemia, unspecified; Z79.01 Long term (current) use of anticoagulants; Z79.899 Other long term (current) drug therapy; Z79.82 Long term (current) use of aspirin; Z91.14 Patient's other noncompliance with medication regimen; Z81.8 Family history of other mental and behavioral disorders; Z95.2 Presence of prosthetic heart valve; Z03.818 Encounter for observation for suspected exposure to other biological agents ruled out
CPT/HCPCS: 10880